=== PATIENT | female | born 1995 | race Caucasian/White ===

== ENCOUNTER 2018-07-07 16:07 | Outpatient (REF) | payer BC, MEDICAID, SELFPAY ==
[2018-07-07 23:07] LABS: TSH (W/Ref FT4) 0.83 uIU/mL (0.358-3.74)
== END 2018-07-07 16:27 ==
LOC: NCHCN 16:07
PROVIDERS: PCP Nurse Practitioner Family; Visit Provider Nurse Practitioner Family
DX: E66.9 Obesity, unspecified (principal)
CPT/HCPCS: 84443

== ENCOUNTER 2023-08-28 15:51 | Outpatient (REF) | payer BC, SELFPAY | END 2023-08-28 15:52 | disposition home or self-care (01) | LOC: NCHCN 15:51 | PROVIDERS: PCP Nurse Practitioner Family; Visit Provider Family Medicine | DX: N76.0 Acute vaginitis (principal); L29.8 Other pruritus | CPT/HCPCS: 87480; 87510; 87660 ==